=== PATIENT | male | born 1945 | race Caucasian/White ===

== ENCOUNTER 2019-10-10 08:16 | Observation (INO) ==
[~2019-10-10 08:16] MED LIST: Bacitracin 50,000 UNIT, Polymyxin B Sulfate 500,000 UNIT, Sodium Chloride IRRigation 1,... IR ONE
[2019-10-10] MEDS ORDERED: Clindamycin 900 MG/50 ML 900 MG/50 ML IV.SOLN IVPB ONE (08:48)
[2019-10-10] MEDS: Ringers Solution, Lactated 1,000 ML IVC SCH (09:21)
[2019-10-10] MEDS ORDERED: *HR* OxyCODONE Immed Rel 5 MG TABLET PO PRN (09:46)
[2019-10-10] MEDS ORDERED: Ondansetron 4 MG/2 ML VIAL IVP ONE (09:46)
[2019-10-10] MEDS ORDERED: *HR* HYDROmorphone PF 0.5 MG/0.5 ML SYRINGE IVP PRN (09:46)
[2019-10-10] MEDS ORDERED: Lidocaine -MPF 2% 2 ML VIAL ONE (10:16)
[2019-10-10] MEDS ORDERED: *HR* Propofol 200 MG/20 ML VIAL IVP ONE (10:16)
[2019-10-10] MEDS ORDERED: *HR* FentaNYL (PF) 100 MCG/2 ML VIAL ONE ×2 (10:16→11:56)
[2019-10-10] MEDS ORDERED: Ondansetron 4 MG/2 ML VIAL ONE (10:16)
[2019-10-10] MEDS ORDERED: Dexamethasone 4 MG/ML VIAL ONE (10:16)
[2019-10-10] MEDS ORDERED: Lidocaine -MPF 4% 5 ML AMPUL ONE (10:17)
[2019-10-10] MEDS ORDERED: *HR* Succinylcholine 200 MG/10 ML VIAL IVP ONE (10:17)
[2019-10-10] MEDS ORDERED: *HR* Rocuronium Bromide 50 MG/5 ML VIAL ONE (10:17)
[2019-10-10] MEDS ORDERED: *HR* PHENYLEPHRINE 1,000 MCG/10 ML SYRINGE IVP ONE (11:11)
[2019-10-10] MEDS ORDERED: EPHEDrine 50 MG/ML VIAL ONE (12:04)
[2019-10-10] MEDS ORDERED: Neostigmine Methylsulfate 3 MG/3 ML SYRINGE ONE (13:04)
[2019-10-10] MEDS ORDERED: Sennosides 8.6 MG TABLET PO PRN (14:30)
[2019-10-10] MEDS ORDERED: Acetaminophen 325 MG TABLET PO PRN (14:30)
[2019-10-10] MEDS ORDERED: Naloxone 0.4 MG/ML INJ IVP PRN (14:30)
[2019-10-10] MEDS ORDERED: D5% in Water 1,000 ML IVC PRN (14:38)
[2019-10-10] MEDS ORDERED: Dextrose Gel 15 GM/37.5 ML TUBE PO PRN ×2 (14:38)
[2019-10-10] MEDS ORDERED: *HR* Dextrose 50 % in Water (Vial) 50 ML VIAL IVP PRN (14:38)
[2019-10-10] MEDS: *HR* HYDROcodone/Acet 5/325 mg TABLET PO PRN (15:30)
[2019-10-10] MEDS: Clindamycin 600 MG/50 ML 600 MG/50 ML IV.SOLN IVPB SCH ×2 (15:31→23:31)
[2019-10-10] MEDS: Gabapentin 300 MG CAPSULE PO SCH ×2 (15:31→21:35)
[2019-10-10] MEDS: Insulin LISPRO 300 UNITS/3 ML VIAL SQ SCH (16:53)
[2019-10-10] MEDS: *HR* OxyCODONE Immed Rel 5 MG TABLET PO PRN (19:27)
[2019-10-10] MEDS: Insulin DETEMIR 100 UNIT/ML X5UNITS SQ SCH (21:35)
[2019-10-11 04:59] LABS: Hematocrit 33.3 % (37.5-50.1); Hemoglobin 10.7 g/dL (12.9-16.9)
[2019-10-11 05:08] LABS: Calcium 7.9 mg/dL (8.6-10.3); Potassium 5.4 mEq/L (3.5-5.1)
[2019-10-11] MEDS: *HR* OxyCODONE Immed Rel 5 MG TABLET PO PRN ×3 (07:41→20:20)
[2019-10-11] MEDS: Aspirin Enteric Coated 81 MG Tablet PO SCH (07:41)
[2019-10-11] MEDS: Gabapentin 300 MG CAPSULE PO SCH ×3 (07:41→20:17)
[2019-10-11] MEDS: Finasteride 5 MG TABLET PO SCH (07:41)
[2019-10-11] MEDS: Famotidine 20 MG TABLET PO SCH (07:41)
[2019-10-11] MEDS: FLUoxetine HCl 10 MG CAPSULE PO SCH (07:41)
[2019-10-11] MEDS: Insulin LISPRO 300 UNITS/3 ML VIAL SQ SCH ×3 (13:11→17:49)
[2019-10-11 18:14] LABS: Bilirubin,Urine Negative (Negative); Blood,Urine Small (Negative); Clarity,Urine Clear (Clear); Color,Urine Colorless (Yellow); Glucose,Urine (UA) 300 mg/dL (Normal); Ketones,Urine Negative (Negative); Leukocyte Esterase,Urine Negative (Negative); Nitrite,Urine Negative (Negative); Protein,Urine Negative (Neg-Trace); RBC,Urine 0-3 per hpf (0-3); Specific Gravity,Urine 1.007 (1.010-1.025); Sperm,Urine Present (None Seen); Urobilinogen,Urine Normal (Normal); WBC,Urine 0-3 per hpf (0-3)
[2019-10-11] MEDS: Insulin DETEMIR 100 UNIT/ML X5UNITS SQ SCH (20:18)
[2019-10-12] MEDS: Ringers Solution, Lactated 1,000 ML IVC SCH (01:14)
[2019-10-12] MEDS: Famotidine 20 MG TABLET PO SCH (09:40)
[2019-10-12] MEDS: Gabapentin 300 MG CAPSULE PO SCH ×3 (09:40→21:15)
[2019-10-12] MEDS: Finasteride 5 MG TABLET PO SCH (09:41)
[2019-10-12] MEDS: FLUoxetine HCl 10 MG CAPSULE PO SCH (09:41)
[2019-10-12] MEDS: Aspirin Enteric Coated 81 MG Tablet PO SCH (09:41)
[2019-10-12] MEDS: Insulin LISPRO 300 UNITS/3 ML VIAL SQ SCH ×3 (09:44→17:15)
[2019-10-12 10:50] LABS: Hematocrit 40.2 % (37.5-50.1)
[2019-10-12 10:51] LABS: Hemoglobin 12.8 g/dL (12.9-16.9)
[2019-10-12 11:07] LABS: Calcium 8.4 mg/dL (8.6-10.3); Potassium 4.1 mEq/L (3.5-5.1)
[2019-10-12] MEDS: Simethicone 80 MG TAB.CHEW PO SCH ×3 (13:23→21:14)
[2019-10-12] MEDS: *HR* HYDROcodone/Acet 5/325 mg TABLET PO PRN (17:09)
[2019-10-12] MEDS: Sennosides 8.6 MG TABLET PO SCH ×2 (17:12→21:16)
[2019-10-12] MEDS: Insulin DETEMIR 100 UNIT/ML X5UNITS SQ SCH (21:15)
[2019-10-12] MEDS: *HR* OxyCODONE Immed Rel 5 MG TABLET PO PRN (21:17)
[2019-10-13] MEDS: Famotidine 20 MG TABLET PO SCH (07:51)
[2019-10-13] MEDS: Simethicone 80 MG TAB.CHEW PO SCH (07:52)
[2019-10-13] MEDS: Aspirin Enteric Coated 81 MG Tablet PO SCH (07:52)
[2019-10-13] MEDS: FLUoxetine HCl 10 MG CAPSULE PO SCH (07:53)
[2019-10-13] MEDS: Sennosides 8.6 MG TABLET PO SCH (07:54)
[2019-10-13] MEDS: Gabapentin 300 MG CAPSULE PO SCH (07:54)
[2019-10-13] MEDS: Finasteride 5 MG TABLET PO SCH (07:55)
[2019-10-13] MEDS: Insulin LISPRO 300 UNITS/3 ML VIAL SQ SCH ×2 (08:00→12:43)
[2019-10-13] MEDS: *HR* OxyCODONE Immed Rel 5 MG TABLET PO PRN (13:50)
[2019-10-13 14:37] VITALS: BP 121/74
[2019-10-15] MEDS ORDERED: Ergocalciferol (VIT D2) 50,000 UNIT (1.25MG) CAP PO SCH (14:43)
== END 2019-10-13 14:30 | disposition home or self-care (01) ==
LOC: SAMDAY 08:16 → 3NENU 08:16
PROVIDERS: ADMIT Orthopaedic Surgery Orthopaedic Surgery of the Spine; ATTEND Orthopaedic Surgery Orthopaedic Surgery of the Spine